=== PATIENT | female | born 1955 | race Caucasian/White ===

== ENCOUNTER 2017-03-24 15:12 | Emergency (ER) | payer BC ==
[2017-03-24 15:26] VITALS: BP 148/76
[2017-03-24] MEDS ORDERED: Ibuprofen TAB* 400 MG PO ONE (15:37)
--- NOTE | 2017-03-24 15:43 | UC ---
Shoulder Pain HPI - HPI Summary HPI Summary: RIGHT SHOULDER HAS BEEN BOTHERING HER FOR OVER A YEAR. TODAY PAIN GOT ACUTELY WORSE. PT HAS VERY LIMITED ROM. NO DISCRETE INJURY. NO SWELLING OR BRUISING. PT WORKS FOR [employer] AND [employer] 40-60LB [employer]. - History of Current Complaint Chief Complaint: UCUpperExtremity Stated Complaint: ARM INJURY Time Seen by Provider: 03/24/17 15:32 Hx Obtained From: Patient Onset/Duration: Gradual Onset, Still Present Timing: Constant Severity Initially: Mild Severity Currently: Severe Location Of Pain: Is Discrete @ - RIGHT SHOULDER Pain Intensity: 10 - WITH MVMT Pain Scale Used: 0-10 Numeric Character: Sharp Aggravating Factor(s): Movement Alleviating Factor(s): Rest, OTC Meds - IBUPROFEN Associated Signs And Symptoms: Positive: Negative Related History: Dominant Hand Right - Allergies/Home Medications Allergies/Adverse Reactions: Allergies Allergy/AdvReac Type Severity Reaction Status Date / Time No Known Allergies Allergy Verified 03/24/17 15:25 Home Medications: Home Medications Albuterol 1 puff INH DAILY 03/24/17 [History Confirmed 03/24/17] PMH/Surg Hx/FS Hx/Imm Hx Previously Healthy: Yes - Surgical History Surgical History: Yes Surgery Procedure, Year, and Place: cleft palate. hernia repair - Family History Known Family History: Positive: Other - FHx of CVA - father and uncle - Social History Alcohol Use: Daily Substance Use Type: None Smoking Status (MU): Never Smoked Tobacco Review of Systems Constitutional: Negative Skin: Negative Respiratory: Negative Cardiovascular: Negative Gastrointestinal: Negative Motor: Decreased ROM Musculoskeletal: Arthralgia, Decreased ROM All Other Systems Reviewed And Are Negative: Yes Physical Exam Triage Information Reviewed: Yes Appearance: Well-Appearing, Well-Nourished, Pain Distress - MODERATE Vital Signs: Initial Vital Signs Temp 98.8 F 03/24/17 15:20 Pulse 81 03/24/17 15:20 Resp 16 03/24/17 15:20 BP 148/76 03/24/17 15:20 Pulse Ox 100 03/24/17 15:20 Vital Signs Reviewed: Yes Eyes: Positive: Conjunctiva Clear ENT: Positive: Hearing grossly normal Neck: Positive: Supple Respiratory: Positive: No respiratory distress, No accessory muscle use Cardiovascular: Positive: Pulses Normal Abdomen Description: Positive: Soft Musculoskeletal: Positive: No Edema, ROM Limited @ - RIGHT SHOULDER BOTH PASSIVE AND ACTIVE, Other: - UNABLE TO DO SPECIAL TESTING FOR SHOULDER DUE TO PT DISCOMFORT Neurological: Positive: Alert Psychological: Positive: Age Appropriate Behavior Skin: Negative: rashes Diagnostics - Radiology RIGHT SHOULDER XRAY Xray Interpretation: Positive (See Comments) - CALCIFIC TENDINITIS. AC JOINT OSTEOARTHRITIS. Radiology Interpretation Completed By: Radiologist Shoulder Course/Dx - Differential Dx/Diagnosis Provider Diagnoses: RIGHT SHOULDER CALCIFIC TENDONITIS Discharge - Discharge Plan Condition: Stable Disposition: HOME Prescriptions: Ibuprofen TAB* [Motrin TAB* 800 MG] 800 mg PO Q8H PRN #30 tab PRN Reason: Pain predniSONE TAB* [Deltasone TAB*] 40 mg PO DAILY #10 tab Patient Education Materials: Calcific Tendinitis (ED) Forms: *Work Release Referrals: Isidra Huynh MD [Medical Doctor] - 5 Days Additional Instructions: CALCIFIC TENDINITIS/TENDINOSIS YOUR XRAY SHOWS A CALCIUM DEPOSIT IN THE TENDONS OF YOUR SHOULDER. THIS COULD BE CONTRIBUTING TO YOUR SYMPTOMS. SUCCESSFUL MANAGEMENT OFTEN CONSISTS OF MEDICATION, A SLING AND PHYSICAL THERAPY. OCCASIONALLY INJECTIONS MAY BE INDICATED. IN RARE CASES SURGERY MAY BE CONSIDERED. The onset of symptoms is usually spontaneous and is associated with the rapid development of excruciating shoulder pain and inability to sleep. The patient is exceedingly tender to palpation and has extreme pain with any attempted motion of the shoulder. There may be warmth and fullness. Elbow and hand motion are normal and circulation/neurologic examination is intact. FOLLOW-UP WITH [facility]THO FOR FURTHER EVALUATION AND MANAGEMENT. PHYSICAL THERAPY REFERRAL PROVIDED. IBUPROFEN NEEDED. BE SURE TO DRINK PLENTY OF WATER AND TAKE WITH A SNACK. PREDNISONE TO HELP REDUCE INFLAMMATION. SLING NEEDED FOR COMFORT. YOUR BLOOD PRESSURE WAS ELEVATED TODAY. THIS MAY BE DUE TO YOUR ACUTE CONDITION. MONITOR AND FOLLOW-UP WITH YOUR PCP WITHIN 4 WEEKS IF IT HAS NOT RETURNED TO NORMAL.
--- NOTE | 2017-03-24 16:24 | RAD ---
INDICATION: Right shoulder pain COMPARISON: None TECHNIQUE: Routine frontal, Y and axial views were obtained. FINDINGS: There is extensive calcific tendinitis. The glenohumeral joint is intact. There is moderate AC joint osteoarthritis. No additional findings. IMPRESSION: CALCIFIC TENDINITIS. AC JOINT OSTEOARTHRITIS.
== END 2017-03-24 16:57 | disposition home or self-care (01) ==
LOC: UCEAST 15:12
DX: M75.31 Calcific tendinitis of right shoulder (principal); M19.011 Primary osteoarthritis, right shoulder
CPT/HCPCS: 99212; A9270-GY; G0463